=== PATIENT | male | born 1970 | race Caucasian/White ===

== ENCOUNTER 2021-08-08 05:59 | Emergency (ER) | payer MEDICAID, SELFPAY ==
[2021-08-08 05:59] VITALS: BP 156/85; PULSE 61; RESP 16; TEMP 36.4; O2SAT 98; BMI 27.3
--- NOTE | 2021-08-08 06:15 | CT_ITS ---
EXAM: CT ABDOMEN AND PELVIS WITHOUT INTRAVENOUS CONTRAST CLINICAL INDICATION: Pain Pain TECHNIQUE: Helically acquired images were obtained of the abdomen and pelvis without intravenous contrast. This CT exam was performed using one or more of the following dose reduction techniques: automated exposure control, adjustment of the mA and/or kV according to patient size, and/or use of iterative reconstruction technique. This report was created using [employer] report generation technology. COMPARISON: None. FINDINGS: LOWER THORAX: Unremarkable. Lung bases are clear. No cardiomegaly. No significant pericardial effusion. ABDOMEN: LIVER: Unremarkable. Homogeneous. GALLBLADDER AND BILE DUCTS: Unremarkable. No calcified gallstones. No gallbladder distention or wall edema. No intra- or extrahepatic biliary ductal dilation. PANCREAS: Unremarkable. No focal cystic mass. SPLEEN: The spleen is mildly enlarged. ADRENALS: Unremarkable. No nodules. KIDNEYS AND URETERS: There is mild hydronephrosis of the right kidney. As seen on axial images 94-95, there is a 4.5 mm wide mid right ureteral calculus at the L4 level. Normal renal size and position. STOMACH AND BOWEL: There is a left inguinal hernia which contains a segment of sigmoid colon. There is no associated bowel obstruction or strangulation. No focal inflammatory change. PELVIS: APPENDIX: A normal-appearing appendix is seen on axial images 121-134. BLADDER: Unremarkable. REPRODUCTIVE: Unremarkable as visualized. No mass. ABDOMEN and PELVIS: INTRAPERITONEAL SPACE: Unremarkable. No ascites or other fluid collection. No free air. BONES/JOINTS: There are no visualized acute osseous abnormalities. No suspicious lytic or blastic abnormality. SOFT TISSUES: There is a small umbilical hernia, which contains fat. VASCULATURE: There is mild atherosclerotic calcification of the abdominal aorta. Abdominal aorta is non-dilated. LYMPH NODES: Unremarkable. No enlarged lymph nodes. CT/Abdomen/Pelvis without Cont IMPRESSION: 1. 4.5 mm wide mid right ureteral calculus at the L4 level. There is associated mild right hydronephrosis. 2. Mild splenomegaly. 3. Left inguinal hernia contains a segment of sigmoid colon. No associated bowel obstruction or strangulation. Electronically Signed: Scooby Paulino MD at 6:46 EST , Service support ,
--- NOTE | 2021-08-08 06:16 | ED.VIS.GI ---
HPI HPI - GI History of Present Illness Chief Complaint: Flank Pain Informant: patient Abdominal Pain/Flank Pain Onset: Today and Hours Context: Gradual Onset Timing: Continuous Quality: Sharp Location: Right Flank Current Severity: Moderate Maximum Severity: Moderate Worsened by: Nothing Relieved by: Nothing Nausea/Vomiting/Emesis GI Symptom: Negative for Nausea and Vomiting Diarrhea/Melena/Hematochezia GI Symptom: Negative for Diarrhea, Melena and Hematochezia Associated Symptoms Associated Symptoms: Negative for Dysuria, Frequency, Hematuria and Urgency Narrative Narrative: 50-year-old male prior history of kidney stone with one stent in the past. States that around 04 April when he awoke with right flank pain is progressively worsened. He denies fever or chills. He denies dysuria or hematuria at this time. He denies nausea, vomiting or diarrhea. No recent illness. This does feel like his prior kidney stones. Prior similar symptoms: Yes Recent Illness/Hospitalization: No PFSH PFSH Medical History Kidney stone Home Medications NK 08/08/21 [History Last Taken Unknown] hydrocodone-acetaminophen 1 tab PO Q4H PRN 3 Days #14 tab 08/08/21 [Rx Last Taken Unknown] Allergy/AdvReac Type Severity Reaction Status Date / Time No Known Allergies Allergy Verified 08/08/21 06:01 Surgical History History of renal stent Hx of lithotripsy Social History Smoking Status: Never smoker ROS ROS ED ROS Narrative Right flank pain Review of Systems ROS Unobtainable: Denies due to encephalopathy Constitutional Constitutional ED: Denies fever(s) ENT ENT ED: Denies ear pain Cardiovascular Cardiovascular: Denies chest pain Respiratory/Chest Respiratory/Chest: Denies cough or dyspnea Gastrointestinal Gastrointestinal: Denies abdominal pain, diarrhea, nausea or vomiting Genitourinary Genitourinary ED: Denies dysuria, hematuria or urinary frequency Musculoskeletal Musculoskeletal: Reports back pain; Denies myalgias Integumentary Denies rash Neurologic Neurologic: Denies headache(s) Psychiatric Psychiatric: Denies depression Endocrine Endocrinology: Denies polyuria Hematologic/Lymphatic Hematologic/Lymphatic: Denies easy bruising Allergic/Immunologic Allergic/Immunologic ED: Denies urticaria EXAM Physical Exam Narrative Exam Narrative: Well-appearing middle-aged male vital signs stable afebrile. H EENT exam unremarkable. Moist with membranes. Lungs clear to auscultation bilaterally. Heart regular rhythm no murmur. Abdomen soft nontender normal bowel sounds no peritoneal signs. Back nontender. No CVA tenderness. Moving all 4 extremities. Nontender no edema. Neurologically is awake and alert with no focal motor deficits. Const Vital Signs: 08/08/21 05:59 Temperature 97.5 F L Temperature Source Oral Pulse Rate 61 Respiratory Rate 16 Blood Pressure 156/85 H Blood Pressure Mean 108 Pulse Ox 98 Positive well nourished and well developed; Negative for obese, cachectic, contractures or unkempt General Appearance ED: well developed and NAD; Negative for unkempt, cachectic, contractures or pallor Nutritional Appearance: Negative for cachectic or obese HEENT Reports moist mucous membranes normocephalic and atraumatic Eyes PERRL and EOMs intact bilaterally Neck no lymphadenopathy, supple and no JVD General: Negative for tenderness Resp normal respiratory effort and clear to auscultation bilaterally Cardio regular rate, regular rhythm, S1 normal heart sound, S2 normal heart sound and no murmurs GI non-tender, non-distended and no masses Auscultation: normoactive bowel sounds Palpation: soft; Negative for tender, guarding, rigid or rebound tenderness present Back/Spine no CVA tenderness General Back: Negative for CVA tenderness Extremity full ROM General Extremety ED: Negative for edema or tenderness General Extremity: Negative for edema Neuro moves all extremities Sensorium / Orientation: alert, oriented to person, oriented to place and oriented to time; Negative for orientation impaired, confused, lethargic or stuporous Motor Exam: strength 5/5 throughout Psych mental status grossly normal and thought process normal Appearance: Negative for unkempt Skin no wounds General Skin Exam: Negative for jaundice or pallor Lesions: no lesions Rashes: no rashes MDM MDM MDM Narrative Medical decision making narrative: 50-year-old male with right flank pain with a history of kidney stones. Historically and clinically this is consistent with a kidney stone. CAT scan labs are being obtained. Will be treated with IV morphine, Zofran and Toradol. Repeat exam at 6:45 AM the patient's return from CAT scan. He is currently pain-free after the IV morphine and 20 awaiting test results. Patient is pain-free. He is comfortable being discharged home. He has a urologist in [place], [place] that he can follow-up with. Lab Data Attestation: I reviewed the patient's lab results. Lab results narrative: Chemistries unremarkable gap of 5. Normal BUN and creatinine is 0.91. Glucose of 153. Urinalysis shows no red cells no white cells no bacteria no nitrates. On the macroscopic there is occult blood. CT flank study shows a 4-1/2 mm right ureteral calculi at the L4 level. Mild hydronephrosis. Labs: Laboratory Results - last 24 hr 08/08/21 08/08/21 06:05 06:10 Sodium 142 Potassium 4.2 Chloride 109 H Carbon Dioxide 28.0 Anion Gap 5 BUN 14 Creatinine 0.91 Estim Creat Clear Calc 90.80 Est GFR (MDRD) Af Amer 114 Est GFR (MDRD) Non-Af 94 BUN/Creatinine Ratio 15.5 Glucose 153 H Calcium 9.0 Urine Color Yellow Urine Clarity Clear Urine pH 5.0 Ur Specific [place] 1.025 Urine Protein 15 H Urine Glucose (UA) Normal Urine Ketones 5 H Urine Occult Blood 250 H Urine Nitrite Negative Urine Bilirubin Negative Urine Urobilinogen Normal Ur Leukocyte Esterase 25 H Urine RBC 0-5 SEEN Urine WBC 0 SEEN Ur Squamous Epith Cells 0 SEEN Urine Bacteria 0 SEEN Urine Mucus 0 SEEN Radiography Diagnostic Testing: Clinical Impression(s) from Imaging Studies Abdomen/Pelvis CT 08/08/21 06:15 IMPRESSION: 1. 4.5 mm wide mid right ureteral calculus at the L4 level. There is associated mild right hydronephrosis. 2. Mild splenomegaly. 3. Left inguinal hernia contains a segment of sigmoid colon. No associated bowel obstruction or strangulation. Electronically Signed: Scooby Paulino MD at 6:46 EST , Service support , CT flank study without contrast appears to have a right mid ureter kidney stone. Awaiting formal radiology interpretation. Discharge Plan Triage Chief Complaint: Flank Pain ED Provider: Tanner Webster Dx/Rx/DC Orders Clinical Impression: Acute right flank pain, Kidney stone on right side Instructions: ED Kidney Stone w/ Colic Prescriptions: New hydrocodone-acetaminophen 5-325 mg tablet 1 tab PO Q4H PRN (Reason: pain) 3 Days Qty: 14 RF: 0 No Action NK RF: 0 Primary Care Provider: Emerson Daugherty Referrals: Emerson Daugherty MD [Primary Care Provider] - Activity Restrictions/Additional Instructions: Plenty of fluids and rest. [place] and Motrin for pain. Follow-up with your urologist. Strain your urine to see if the stone passes. Return if recurrent intractable pain, fever, vomiting or feeling worse peer Disposition Disposition: Home, Self Care
[2021-08-08] MEDS: morphine 8 MG/ML Syringe IV (06:23)
[2021-08-08] MEDS: Ketorolac 30 MG/ML Syringe IV (06:24)
[2021-08-08] MEDS: Ondansetron 4 MG/2 ML Vial IV (06:24)
[2021-08-08 06:30] LABS: Bacteria 0 SEEN /hpf (None Seen); Mucous, Urine 0 SEEN /hpf (<or=2+); Squamous Epithelial Cells - UA 0 SEEN /hpf (0-5); White Blood Cells 0 SEEN /hpf (0-5)
[2021-08-08 06:37] LABS: Color, Urine Yellow (Yellow); Glucose, Dipstick Normal (Normal); Ketone-Dipstick 5 mg/dl (Negative); Leukocyte Esterase-Dipstick 25 /ul (Negative); Nitrite-Dipstick Negative (Negative); Occult Blood-Urine 250 /ul (Negative); Protein-Dipstick 15 mg/dl (Negative); Specific Gravity, Urine 1.025 (1.002-1.030); Urine Bilirubin Dipstick Negative (Negative); Urine Clarity Clear (Clear); Urine Urobilinogen Normal (Normal)
[2021-08-08 06:43] LABS: Anion Gap 5 (5-15); BUN 14 mg/dL (7-18); BUN/Creat Ratio 15.5 RATIO (10-20); Chloride 109 mmol/L (98-107); Creatinine, Serum 0.91 mg/dL (0.70-1.30); EST Glomerular Filtration Rate 94 mL/min (>60); Est Glom Filt Rate - Afr Amer 114 mL/min (>60); Glucose 153 mg/dL (74-106); Potassium 4.2 mmol/L (3.5-5.1); Sodium Level 142 mmol/L (136-145)
[2021-08-08 07:03] LABS: Red Blood Cells-Urine 0-5 SEEN /hpf (0-5)
[2021-08-08 07:44] VITALS: BP 135/76; PULSE 76; RESP 17; O2SAT 97
== END 2021-08-08 07:46 | disposition home or self-care (01) ==
PROVIDERS: Emergency Provider Emergency Medicine; PCP Family Medicine
DX: N13.2 Hydronephrosis with renal and ureteral calculous obstruction (principal); Z87.442 Personal history of urinary calculi
CPT/HCPCS: 74176; 80048; 81001; 96374; 96375; 99283; A4216; J2405

== ENCOUNTER 2024-07-27 20:33 | Emergency (ER) | payer MEDICAID, OTHER, SELFPAY ==
[2024-07-27 20:34] VITALS: BP 182/75; PULSE 76; RESP 16; TEMP 36.9; O2SAT 99; BMI 31.7
--- NOTE | 2024-07-27 20:47 | CT_ITS ---
STUDY: CT ABDOMEN AND PELVIS WITH CONTRAST REASON FOR EXAM: Male, 53 years old. left inguinal pain/swelling RADIATION DOSAGE (If Supplied By Facility): CTDIvol = ( 15.90 ) mGy, DLP = ( 1327.18 ) mGycm TECHNIQUE: IV 100mL Isovue-370 was administered. Transaxial images were obtained from the dome of the diaphragm to the symphysis pubis in the portal venous phase. Multiplanar coronal and sagittal images were reformatted. Individualized Dose Optimization Techniques Were Used For This CT. COMPARISON: Prior study dated: 08/08/2021 FINDINGS: LOWER CHEST: Lung bases are clear. No cardiomegaly or pericardial effusion. LIVER: The liver is normal in size, shape, and attenuation. No focal mass. GALLBLADDER AND BILIARY TREE: The gallbladder is normally distended. No gallstones. No gallbladder wall thickening or edema. No pericholecystic fluid. No intra- or extrahepatic biliary ductal dilation. PANCREAS: No focal cystic or solid mass. SPLEEN: Normal size without focal cystic or solid mass. ADRENAL GLANDS: No nodules. KIDNEYS AND URETERS: Normal renal size and position. No hydronephrosis or nephrolithiasis. PERITONEUM: No ascites or free air. No other fluid collection. BOWEL: The stomach is unremarkable. Normal caliber small bowel. There is no obstruction. No colonic wall thickening or inflammation. No evidence of acute appendicitis. LYMPH NODES: No enlarged mesenteric or retroperitoneal lymph nodes. VESSELS: Aorta is non-dilated. URINARY BLADDER: Unremarkable. REPRODUCTIVE ORGANS: No pelvic masses. ABDOMINAL WALL: No abdominal wall hernia. Soft tissue thickening at the site of prior left inguinal hernia, likely status post repair. Overlying scarring. BONES: No lytic or blastic abnormality. CT/Abdomen/Pelvis W IV Cont ONLY IMPRESSION: Likely prior left inguinal hernia repair with soft tissue thickening in this region and overlying scarring. No acute inflammation noted. Electronically Signed: Yordy Stahl MD at 21:44 EST ,
--- NOTE | 2024-07-27 20:48 | EDS_ITS ---
HPI History of Present Illness Chief Complaint: Male Pain/Injury Informant: patient Narrative Narrative: Earlier today patient started having left scrotal discomfort that became worse this evening. He states he has some swelling in his groin, along with pain ther e similar to when he had hernia there but it was repaired in May by Dr. Davis. He states earlier today he passed gas and the pain suddenly resolved as a result but now it is back. He denies pain into his back, he denies any nausea or vomiting but feels like he is bloated and distended in his abdomen where he has discomfort and pain. No urinary issues or hematuria. [facility] Medical History Hypertension Kidney stone Home Medications ?Medication ?Instructions ?Recorded ?Last Taken ?Type lisinopril 20 mg tablet 20 mg PO DAILY 07/27/24 Unknown History Allergy/AdvReac Type Severity Reaction Status Date / Time No Known Allergies Allergy Verified 07/27/24 20:36 Surgical History H/O hernia repair Hx of lithotripsy History of renal stent Social History Smoking Status: Never smoker ROS ROS ED Constitutional Constitutional ED: Denies chills or fever(s) Eyes Eyes: Denies change in vision or diplopia ENT ENT ED: Denies rhinorrhea or sore throat Cardiovascular Cardiovascular: Denies chest pain or palpitations Respiratory/Chest Respiratory/Chest: Denies cough or dyspnea Gastrointestinal Gastrointestinal: Reports abdominal pain; Denies diarrhea, nausea or vomiting Genitourinary Genitourinary ED: Reports as per HPI and scrotal pain; Denies dysuria or hematuria Musculoskeletal Musculoskeletal: Denies back pain or neck pain Integumentary Denies abscess or rash Neurologic Neurologic: Denies headache(s), paresthesias or weakness Psychiatric Psychiatric: Denies anxiety or suicidal thoughts EXAM Physical Exam Const Vital Signs: 07/27/24 20:34 Temperature 98.5 F Temperature Source Oral Pulse Rate 76 Respiratory Rate 16 Blood Pressure 182/75 H Blood Pressure Mean 110 Pulse Ox 99 Oxygen Delivery Method Room Air Positive well nourished and well developed General Appearance ED: well developed and NAD HEENT Reports moist mucous membranes normocephalic and atraumatic Eyes PERRL and EOMs intact bilaterally Neck full ROM and supple Resp normal respiratory effort and clear to auscultation bilaterally Cardio regular rate, regular rhythm and no murmurs GI GI Narrative: Abdominal distention, soft. Tender left lower quadrant. No guarding or rebound. Auscultation: normoactive bowel sounds Palpation: soft no CVA tenderness Narrative: Examined while standing. Left hemiscrotum is swollen compared with the left, the testicle and epididymis are nontender bilaterally. However, to superior to the scrotum on the left is prominence/swelling without erythema and very tender. It feels like there is an indirect hernia going into the left hemiscrotum, but into the scrotum proper and is nontender. Back/Spine no CVA tenderness General Back: other FROM Extremity normal to inspection General Extremety ED: Negative for edema, pulses abnormal or tenderness General Extremity: Negative for edema or pulses abnormal Neuro oriented x3, CN's II-XII intact bilaterally and no sensory deficits noted Sensorium / Orientation: awake and alert Motor Exam: strength 5/5 throughout Skin no rashes or lesions noted and no wounds MDM MDM MDM Narrative Medical decision making narrative: With the patient swollen left hemiscrotum and tender swollen area proximal to this, my concern is for a recurrent indirect hernia. His scrotum is nontender, it is edematous/asymmetric, and he states this has been the case ever since his surgery in May. In fact he had a preoperative ultrasound, he showed me the report on his [facility] electronic chart, it showed a significant indirect hernia in the left hemiscrotum containing bowel but no hydrocele or other fluid collections noted. I reviewed the CT images as well as result which I agree with. Initially there was no mention of the left hemiscrotal asymmetric edema, so I asked radiology to have the radiologist repeat the read for this area. He states it looks more consistent with a hydrocele, as opposed to blood, and there is no acute inflammation or hernia. I asked surgery Dr. Amaral to review the imaging, he agrees to nothing acute and nothing emergently surgical. Given all of this, I do not think the patient needs an emergent ultrasound of the scrotum because I do not think he is having any testicular tenderness, but given the persistent swelling since his surgery, I we will schedule him for an outpatient ultrasound of the scrotum (patient is here when ultrasound is not physically in the hospital) and having follow-up with urology either with us or with [facility]. He is comfortable with that plan. History & Record Review Additional record(s) reviewed:: Prior labs (Ultrasound [facility] see above) Lab Data Attestation: I reviewed the patient's lab results. Labs: Laboratory Results - last 24 hr 07/27/24 07/27/24 21:00 21:16 WBC 5.1 RBC 4.47 L Hgb 13.6 Hct 39.9 L MCV 89.3 MCH 30.4 MCHC 34.1 RDW Std Deviation 42.5 RDW Coeff of Tuyet 13.0 Plt Count 228 MPV 9.4 Immature Gran % (Auto) 0.200 Neut % (Auto) 41.5 L Lymph % (Auto) 41.1 H Kid[place] % (Auto) 11.5 H Eos % (Auto) 4.7 Baso % (Auto) 1.0 Absolute Neuts (auto) 2.1 Absolute Lymphs (auto) 2.08 Nucleated RBC % 0 Sodium 144 Potassium 4.5 Chloride 112 H Carbon Dioxide 27.0 Anion Gap 5 BUN 17 Creatinine 0.94 Estim Creat Clear Calc 98.23 Est GFR (MDRD) Af Amer 108 Est GFR (MDRD) Non-Af 89 BUN/Creatinine Ratio 18.1 Glucose 128 H Calcium 8.6 Urine Color Straw Urine Clarity Clear Urine pH 6.0 Ur Specific [place] 1.020 Urine Protein 30 H Urine Glucose (UA) Normal Urine Ketones Negative Urine Occult Blood 10 H Urine Nitrite Negative Urine Bilirubin Negative Urine Urobilinogen Normal Ur Leukocyte Esterase Negative Urine RBC 0 SEEN Urine WBC 0-5 SEEN Ur Squamous Epith Cells 5-10 SEEN Urine Bacteria RARE Urine Mucus 1+ Radiography Diagnostic Testing: Clinical Impression(s) from Imaging Studies Abdomen/Pelvis CT 07/27/24 20:47 IMPRESSION: Likely prior left inguinal hernia repair with soft tissue thickening in this region and overlying scarring. No acute inflammation noted. Electronically Signed: Yordy Stahl MD at 21:44 EST , ADDENDUM: 07/27/242203 IMPRESSION: undefined Management Discussion w/another healthcare provider: Insulation Technician (Maria Alejandratz surgery) Discharge Plan Triage Chief Complaint: Male Pain/Injury ED Provider: Mohsen Acharya Dx/Rx/DC Orders Clinical Impression: Abdominal pain, lower, Swelling of left half of scrotum Instructions: ED Testicular Pain, Unclear Cause Prescriptions: No Action lisinopril 20 mg tablet 20 mg PO DAILY Other Ambulatory Orders: Testicular with Arterial Flow (Routine) Timeframe: 2 Days Facility: [facility] - Location: [facility] Ordered By: Dr. Mohsen Acharya Primary Care Provider: Dre Roberts Referrals: Dre Roberts MD [Primary Care Provider] - Juarez Ybarra MD [Med Staff - Active Staff] - As soon as possible (after u/s (or [facility] urology)) Naveen Davis MD [Non-Staff] - (for persistent L groin pain) Print Language: Irish Disposition Disposition: Home, Self Care
[2024-07-27 21:04] LABS: Absolute Lymphocyte Count 2.08 X10^3/uL (0.83-4.51); Absolute Neutrophil Count 2.1 X10^3/uL (2.0-7.7); Basophil# 0.05 X10^3/uL; Eosinophil# 0.24 X10^3/uL; Eosinophils% 4.7 % (0-5); Hematocrit 39.9 % (40-54); Hemoglobin 13.6 g/dL (13.0-16.5); Lymphocyte # 2.08 X10^3/ul (0.83-4.51); Lymphocyte % 41.1 % (19-41); Mean Corp Hgb Conc 34.1 g/dL (32-36); Mean Corpuscular Hgb 30.4 pg (27.0-32.0); Mean Corpuscular Volume 89.3 fL (80-94); Mean Platelet Vol. 9.4 fl (6.2-12.0); Monocyte# 0.58 X10^3/uL; Monocyte% 11.5 % (0-10); NRBC Flagged by Analyzer 0 % (0-5); Neutrophil % 41.5 % (47-70); Platelet Count 228 K/mm3 (150-450); RBC Distribution Width SD 42.5 fl (35.1-43.9); Red Blood Count 4.47 M/mm3 (4.6-6.2); White Blood Count 5.1 K/mm3 (4.4-11.0)
[2024-07-27] MEDS: Morphine 4 MG/ML Syringe IV (21:06)
[2024-07-27 21:20] LABS: Red Blood Cells-Urine 0 SEEN /hpf (0-5)
[2024-07-27 21:22] LABS: Anion Gap 5 (5-15); BUN 17 mg/dL (7-18); BUN/Creat Ratio 18.1 RATIO (10-20); Calcium,Total 8.6 mg/dL (8.5-10.1); Chloride 112 mmol/L (98-107); Creatinine, Serum 0.94 mg/dL (0.70-1.30); EST Glomerular Filtration Rate 89 mL/min (>60); Est Glom Filt Rate - Afr Amer 108 mL/min (>60); Estimated Creatinine Clearance 98.23 ml/min; Glucose 128 mg/dL (74-106); Potassium 4.5 mmol/L (3.5-5.1); Sodium Level 144 mmol/L (136-145)
[2024-07-27 21:22] LABS: Color, Urine Straw (Yellow); Glucose, Dipstick Normal (Normal); Ketone-Dipstick Negative (Negative); Leukocyte Esterase-Dipstick Negative /ul (Negative); Nitrite-Dipstick Negative (Negative); Occult Blood-Urine 10 /ul (Negative); Protein-Dipstick 30 mg/dl (Negative); Urine Bilirubin Dipstick Negative (Negative); Urine Clarity Clear (Clear); Urine Urobilinogen Normal (Normal)
[2024-07-27 21:29] LABS: Bacteria RARE /hpf (None Seen); Mucous, Urine 1+ /hpf (<or=2+); Squamous Epithelial Cells - UA 5-10 SEEN /hpf (0-5); White Blood Cells 0-5 SEEN /hpf (0-5)
[2024-07-27 22:34] VITALS: BP 145/87; PULSE 67; RESP 16; TEMP 37.2; O2SAT 100
== END 2024-07-27 22:38 | disposition home or self-care (01) ==
PROVIDERS: Emergency Provider Emergency Medicine; PCP Family Medicine; Visit Provider Emergency Medicine
DX: R10.30 Lower abdominal pain, unspecified (principal); I10 Essential (primary) hypertension; N50.89 Other specified disorders of the male genital organs; N50.82 Scrotal pain; Z79.899 Other long term (current) drug therapy; Z98.890 Other specified postprocedural states
CPT/HCPCS: 74177; 80048; 81001; 85025; 96374; 99282; Q9967; A4216

== ENCOUNTER → 2024-07-28 | Outpatient (CLI) | payer OTHER, MEDICAID, SELFPAY ==
--- NOTE | 2024-07-28 17:48 | US_ITS ---
EXAM: US SCROTUM CLINICAL INDICATION: LT PAIN TECHNIQUE: Realtime ultrasound of the testicles was performed with grayscale and Color Doppler analysis. COMPARISON: CT abdomen and pelvis, 07/27/2024 FINDINGS: RIGHT TESTICLE: No significant abnormality. Normal in size and echotexture. No focal lesion. Normal blood flow is present. The right testicle measures 3.9 x 2.5 x 2.0 cm. LEFT TESTICLE: No significant abnormality. Normal in size and echotexture. No focal lesion. Normal blood flow is present. The left testicle measures 3.2 x 2.6 x 2.4 cm. EPIDIDYMIDES: There is a 5 mm right epididymal head cyst. Normal color Doppler flow pattern in the epididymis. SCROTUM: There is a small left varicocele. There is a large left-sided hydrocele with minimal debris. SOFT TISSUES: Hypoechoic focus within the subcutaneous soft tissue of the left inguinal region, possibly scar given history of prior hernia repair. US/Testicular with Arterial Flow IMPRESSION: 1. There is a small left varicocele. 2. There is a large left-sided hydrocele with minimal debris. Doubt pyocele. 3. Hypoechoic focus within the subcutaneous soft tissue of the left inguinal region, possibly scar given history of prior hernia repair. 4. No intrinsic testicular pathology. Electronically Signed: Michael Menezes DO at 23:02 EST ,
== END | disposition home or self-care (01) ==
LOC: US 17:47
PROVIDERS: PCP Family Medicine; Referring Provider Emergency Medicine; Visit Provider Emergency Medicine
DX: N50.812 Left testicular pain (principal)
CPT/HCPCS: 76870; 93976